=== PATIENT | male | born 1995 | race Hispanic/Latino ===

== ENCOUNTER 2017-03-28 09:13 | Emergency (ER) | payer OTHER ==
[2017-03-28] MEDS: IBUPROFEN 800 MG TAB PO (10:27)
[2017-03-28] MEDS: ACETAMINOPHEN 325 MG TAB PO (10:27)
[2017-03-28 10:38] LABS: INFLUENZA A AMPLIFICATION POSITIVE (NEGATIVE); INFLUENZA B AMPLIFICATION NEGATIVE (NEGATIVE)
== END 2017-03-28 11:00 | disposition home or self-care (01) ==
LOC: M ED 09:13
DX: J09.X2 Influenza due to identified novel influenza A virus with other respiratory manifestations (principal); Z88.2 Allergy status to sulfonamides; Z88.8 Allergy status to other drugs, medicaments and biological substances; Z87.891 Personal history of nicotine dependence
CPT/HCPCS: 71046